=== PATIENT | male | born 1945 | race Caucasian/White ===

== ENCOUNTER 2020-10-15 17:18 | Inpatient (IN) | payer MEDICARE ==
[~2020-10-15] VITALS: Ht 172.7 cm; Wt 109.0 kg
[2020-10-15] MEDS ORDERED: METO100T7 PO (21:29)
[2020-10-15] MEDS ORDERED: FURO20TA3 PO (21:29)
[2020-10-15] MEDS ORDERED: ALLO300T PO (21:29)
[2020-10-15] MEDS ORDERED: RIVA20TA PO (21:29)
[2020-10-15] MEDS ORDERED: ROSU10TA2 PO (21:29)
[2020-10-15] MEDS ORDERED: DILT120C83 PO (21:29)
[2020-10-15 21:43] VITALS: BP 118/79
[2020-10-15] MEDS ORDERED: MELATONIN 5 MG TABLET PO PRN (22:30)
[2020-10-15] MEDS ORDERED: ACETAMINOPHEN 325 MG TABLET PO PRN (22:30)
[2020-10-15] MEDS ORDERED: DOCUSATE 100 MG CAPSULE PO PRN (22:30)
[2020-10-15] MEDS: ATORVASTATIN 40 MG TABLET PO SCH (22:42)
[2020-10-15] MEDS: DILTIAZEM 120 MG TABLET PO SCH (22:42)
[2020-10-15] MEDS: METOPROLOL TARTRATE 100 MG TAB PO SCH (22:42)
[2020-10-15] MEDS: RIVAROXABAN 20 MG TABLET PO SCH (22:42)
[2020-10-16] MEDS ORDERED: FUROSEMIDE 40 MG/4 ML IV ONE
[2020-10-16] MEDS ORDERED: DILTIAZEM 5 MG/ML, 5ML IVPush PRN (00:30)
[2020-10-16 00:32] LABS: BASOPHILS % (AUTO) 1 % (0-1); EOSINOPHILS % (AUTO) 1 % (1-7); LYMPHOCYTES % (AUTO) 20 % (22-44); MEAN CORPUSCULAR HEMOGLOBIN 33.8 pg (27.5-34.5); MEAN CORPUSCULAR HGB CONC 33.8 g/dL (33.2-36.2); MEAN PLATELET VOLUME 9.7 fL (7.4-10.4); MONOCYTES % (AUTO) 10 % (2-9); NEUTROPHILS % (AUTO) 68 % (42-75); PLATELET COUNT 219 x10^3/uL (130-400); RED BLOOD COUNT 4.35 x10^6/uL (4.38-5.82); RED CELL DISTRIBUTION WIDTH 17.1 % (9.4-14.8)
[2020-10-16 00:44] LABS: ALANINE AMINOTRANSFERASE 26 U/L (12-78); ANION GAP 9 mmol/L (5-15); CALCIUM 9.2 mg/dL (8.5-10.1); CHLORIDE 110 mmol/L (98-107); CREATININE 1.18 mg/dL (0.7-1.3)
[2020-10-16 00:54] LABS: ALKALINE PHOSPHATASE 81 U/L (45-117); BILIRUBIN,TOTAL 1.1 mg/dL (0.2-1.0); TOTAL PROTEIN 6.7 g/dL (6.4-8.2)
[2020-10-16 01:07] VITALS: BP 117/76
[2020-10-16 03:00] LABS: TROPONIN I < 0.015 ng/mL (0.000-0.045)
[2020-10-16 07:56] VITALS: BP 117/79
[2020-10-16 08:57] VITALS: BP 107/71
[2020-10-16] MEDS: ALLOPURINOL 300 MG TABLET PO SCH (09:01)
[2020-10-16] MEDS: METOPROLOL TARTRATE 100 MG TAB PO SCH ×2 (09:01→21:03)
[2020-10-16] MEDS: FUROSEMIDE 20 MG TABLET PO SCH (09:01)
[2020-10-16] MEDS: DILTIAZEM 120 MG TABLET PO SCH (09:01)
[2020-10-16] MEDS ORDERED: DILTIAZEM 125 MG in SODIUM CHLORIDE 0.9% 100 ML IV SCH (09:30)
[2020-10-16 14:56] VITALS: BP 106/75
[2020-10-16] MEDS ORDERED: DILTIAZEM 30 MG TABLET ONE (17:06)
[2020-10-16] MEDS ORDERED: DILTIAZEM 60 MG TABLET ONE (17:06)
[2020-10-16] MEDS: DILTIAZEM 90 MG TABLET PO SCH ×2 (17:07→21:04)
[2020-10-16 20:59] VITALS: BP 119/82
[2020-10-16] MEDS: ATORVASTATIN 40 MG TABLET PO SCH (21:03)
[2020-10-16] MEDS: RIVAROXABAN 20 MG TABLET PO SCH (21:03)
[2020-10-17 02:36] VITALS: BP 110/79
[2020-10-17 07:20] VITALS: BP 119/75
[2020-10-17] MEDS: ALLOPURINOL 300 MG TABLET PO SCH (09:22)
[2020-10-17] MEDS: DILTIAZEM 90 MG TABLET PO SCH (09:22)
[2020-10-17] MEDS: FUROSEMIDE 20 MG TABLET PO SCH (09:22)
[2020-10-17] MEDS: METOPROLOL TARTRATE 100 MG TAB PO SCH ×2 (09:22→21:05)
[2020-10-17 10:22] LABS: BASOPHILS % (AUTO) 1 % (0-1); EOSINOPHILS % (AUTO) 1 % (1-7); LYMPHOCYTES % (AUTO) 18 % (22-44); MEAN CORPUSCULAR HEMOGLOBIN 33.6 pg (27.5-34.5); MEAN CORPUSCULAR HGB CONC 33.5 g/dL (33.2-36.2); MEAN PLATELET VOLUME 9.9 fL (7.4-10.4); MONOCYTES % (AUTO) 12 % (2-9); NEUTROPHILS % (AUTO) 68 % (42-75); PLATELET COUNT 217 x10^3/uL (130-400); RED BLOOD COUNT 4.28 x10^6/uL (4.38-5.82); RED CELL DISTRIBUTION WIDTH 17.5 % (9.4-14.8)
[2020-10-17 14:25] VITALS: BP 106/68
[2020-10-17] MEDS: DILTIAZEM 120 MG TABLET PO SCH ×2 (16:19→22:52)
[2020-10-17 19:09] VITALS: BP 102/70
[2020-10-17 21:03] VITALS: BP 111/75
[2020-10-17] MEDS: ATORVASTATIN 40 MG TABLET PO SCH (21:04)
[2020-10-17] MEDS: RIVAROXABAN 20 MG TABLET PO SCH (21:06)
[2020-10-17 22:52] VITALS: BP 108/77
[2020-10-18 01:12] VITALS: BP 104/70
[2020-10-18 01:13] VITALS: BP 111/70
[2020-10-18 05:24] LABS: BASOPHILS % (AUTO) 1 % (0-1); EOSINOPHILS % (AUTO) 2 % (1-7); LYMPHOCYTES % (AUTO) 21 % (22-44); MEAN CORPUSCULAR HEMOGLOBIN 33.6 pg (27.5-34.5); MEAN CORPUSCULAR HGB CONC 33.1 g/dL (33.2-36.2); MEAN PLATELET VOLUME 9.9 fL (7.4-10.4); MONOCYTES % (AUTO) 12 % (2-9); NEUTROPHILS % (AUTO) 65 % (42-75); PLATELET COUNT 226 x10^3/uL (130-400); RED BLOOD COUNT 4.12 x10^6/uL (4.38-5.82)
[2020-10-18 05:29] LABS: ANION GAP 8 mmol/L (5-15); CALCIUM 8.7 mg/dL (8.5-10.1); CHLORIDE 108 mmol/L (98-107); CREATININE 1.06 mg/dL (0.7-1.3)
[2020-10-18 07:00] VITALS: BP 110/77
[2020-10-18] MEDS: FUROSEMIDE 20 MG TABLET PO SCH (08:50)
[2020-10-18] MEDS: DILTIAZEM 90 MG CAP.ER.12H PO SCH ×2 (08:50→20:57)
[2020-10-18] MEDS: ALLOPURINOL 300 MG TABLET PO SCH (08:51)
[2020-10-18] MEDS: METOPROLOL TARTRATE 100 MG TAB PO SCH ×2 (08:51→20:57)
[2020-10-18 14:15] VITALS: BP 123/85
[2020-10-18 19:18] VITALS: BP 96/57
[2020-10-18] MEDS: ATORVASTATIN 40 MG TABLET PO SCH (20:57)
[2020-10-18] MEDS: RIVAROXABAN 20 MG TABLET PO SCH (20:57)
[2020-10-19 01:26] VITALS: BP 135/79
[2020-10-19] MEDS ORDERED: MAGNESIUM SULFATE PMX 2GM/50ML 50 ML IV ONE (08:00)
[2020-10-19] MEDS ORDERED: POTASSIUM CHLORIDE 20 MEQ in SODIUM CHLORIDE 0.9% 250 ML IV ONE (08:00)
[2020-10-19 08:10] VITALS: BP 118/76
[2020-10-19] MEDS: DILTIAZEM 90 MG CAP.ER.12H PO SCH (08:28)
[2020-10-19] MEDS: METOPROLOL TARTRATE 100 MG TAB PO SCH (08:28)
[2020-10-19] MEDS: FUROSEMIDE 20 MG TABLET PO SCH (08:28)
[2020-10-19] MEDS: ALLOPURINOL 300 MG TABLET PO SCH (08:28)
[2020-10-19] MEDS ORDERED: CARVEDILOL 3.125 MG TABLET PO ONE (10:30)
[2020-10-19] MEDS ORDERED: DILT90CA PO (11:05)
[2020-10-19] MEDS ORDERED: CARV3.1212 PO (11:05)
[2020-10-19] MEDS ORDERED: CARVEDILOL 3.125 MG TABLET PO SCH (18:00)
== END 2020-10-19 11:30 | disposition home or self-care (01) | DRG 308 ==
LOC: 5SO 20:45 → DCLOUNGE 10-19 11:24
PROVIDERS: ADMIT Internal Medicine; ATTEND Family Medicine
DX: I48.91 Unspecified atrial fibrillation (principal); I50.23 Acute on chronic systolic (congestive) heart failure; D68.59 Other primary thrombophilia; E66.2 Morbid (severe) obesity with alveolar hypoventilation; I11.0 Hypertensive heart disease with heart failure; R55 Syncope and collapse; I37.1 Nonrheumatic pulmonary valve insufficiency; T46.1X5A Adverse effect of calcium-channel blockers, initial encounter; Z79.01 Long term (current) use of anticoagulants; Z79.899 Other long term (current) drug therapy; Z68.36 Body mass index [BMI] 36.0-36.9, adult; Y92.89 Other specified places as the place of occurrence of the external cause
CPT/HCPCS: 36415; 36600; 71045; 80053; 80069; 82803; 82962; 83735; 84100; 84145; 84443; 84484; 85025; 93306; G0378; J1940; J3480; J3475; J7050